=== PATIENT | female | born 1950 | race Caucasian/White ===

== ENCOUNTER 2019-06-26 09:57 | Emergency (ER) | payer BC, MEDICARE ==
--- OUTSIDE RECORDS SUMMARY | 2019-06-26 10:12 | XMS REPORT | Continuity of Care Document ---
:1950 External Reference #:[id number] Author Name Kendall Cloud MD Address [address] [place] [id number] Care Team Providers Name Role Phone [facility] - Physical Care Team Information Surveillance Sensor Operator Therapy Amilcar Rowan MD - Rheumatology Care Team Information Surveillance Sensor Operator Kendall Cloud MD - Family Medicine Care Team Information Surveillance Sensor Operator Problems Active Problems Provider Date Conduction disorder of the heart Roger Julian M.D., Onset: 05/13/[address] [facility] Aneurysm of thoracic aorta Roger Julian M.D., Onset: 05/13/[address] [facility] Cellulitis April Ramos M.D. Onset: 08/18/2014 Benign essential hypertension Nidia Bauman, Onset: 12/21/2014 JAZMIN FREEMAN Atherosclerosis of artery Nidia Bauman, Onset: 12/21/2014 JAZMIN FREEMAN Essential hypertension Roger Julian M.D., Onset: 09/29/2015 [facility] Hyperlipidemia Glenn Retana M.D. Onset: 03/13/2016 Taking medication Glenn Retana M.D. Onset: 03/13/2016 Abnormal glucose level Glenn Retana M.D. Onset: 03/13/2016 Encounter for screening for nutritional Glenn Retana M.D. Onset: 03/13/2016 disorder Irritable bowel syndrome Glenn Retana M.D. Onset: 03/13/2016 Vitamin D deficiency Glenn Retana M.D. Onset: 04/05/2016 Hypokalemia Glenn Retana M.D. Onset: 04/05/2016 Thalassemia Glenn Retaan M.D. Onset: 04/05/2016 Acquired trigger finger Glenn Retana M.D. Onset: 06/05/2016 Mass of joint of hand Glenn Retana M.D. Onset: 06/05/2016 Spasm Glenn Retana M.D. Onset: 08/02/2016 Neck pain Glenn Retana M.D. Onset: 08/02/2016 Attended breast screening clinic Glenn Retana M.D. Onset: 08/02/2016 Tietze's disease Glenn Retana M.D. Onset: 08/12/2016 Chest pain Glenn Retana M.D. Onset: 08/12/2016 Cervical disc disorder Glenn Retana M.D. Onset: 09/09/2016 Skin sensation disturbance Glenn Retana M.D. Onset: 09/09/2016 Anxiety state Glenn Retana M.D. Onset: 09/18/2016 Headache Glenn Retana M.D. Onset: 09/18/2016 Nausea Glenn Retana M.D. Onset: 09/18/2016 Preoperative cardiovascular examination Roger Julian M.D., Onset: [facility] Encounter for other preprocedural Glenn Retana M.D. Onset: 06/06/2017 examination Hypermature cataract Glenn Retana M.D. Onset: 06/06/2017 Immunization Glenn Retana M.D. Onset: 06/06/2017 Mastitis Glenn Retana M.D. Onset: 09/23/2017 Methicillin resistant staphylococcus Glenn Retana M.D. Onset: 09/23/2017 aureus carrier Screening for malignant neoplasm of Glenn Retana M.D. Onset: 05/15/2018 colon Screening mammography Glenn Retana M.D. Onset: 05/15/2018 Acquired renal cystic disease Tirso Valadez MD pc Onset: 04/12/2013 Benign neoplasm of kidney Onset: 04/12/2013 Pure hypercholesterolemia Onset: Multiple congenital cysts of kidney Onset: Type 2 diabetes mellitus Roger Julian M.D., Onset: 03/12/[address] [facility] Dyspnea Roger Julian M.D., Onset: 04/13/[address] [facility] Social History Type Date Description Comments Sex Unknown Tobacco Use Start: Unknown Never Smoked Cigarettes ETOH Use Rarely consumes wine Recreational Drug Use Denies Drug Use Tobacco Use Start: Unknown Patient has never smoked Smoking Status Reviewed: 06/02/19 Patient has never smoked Allergies, Adverse Reactions, Alerts Active Allergies Reaction Severity Comments Date Percocet Hallucinates 08/29/2010 Ciprofloxacin "body burning up" 04/11/2014 Flagyl 08/18/2014 Cipro 08/18/2014 Oxycodone Hallucinations 01/20/2018 Medications Active Medications SIG Qnty Indications Ordering Date Provider Clopidogrel Bisulfate Take 1 Tablet 90Tablet Roger Julian 05/25/2019 75mg By Mouth Every M., M.D., [facility] Tablets Day Amlodipine Besylate 1 by mouth 30tabs Roger Julian 03/12/2019 5mg every day M., M.D., [facility] Tablets Losartan Take 1 Tablet 90tabs Roger Julian 09/28/2018 Potassium/Hydrochloroth By Mouth Every M., M.D., [facility] iazide Day 100-25mg Tablets Atorvastatin Calcium 1 by mouth 90tabs Glenn Retana, 07/09/2017 40mg every day M.D. Tablets Ubiquinol 1 by mouth 30caps I10 Glenn Retana, 03/13/2016 200mg Capsules once daily M.D. Ibuprofen PM as needed Unknown 200-38mg Tablets Aspirin Adult Low Dose 1 by mouth Unknown 81mg every day Tablets DR [place] 3 1 by mouth Unknown 1000mg Capsules every day Cyclobenzaprine HCL Take 1 Tablet Unknown 10mg By Mouth Daily Tablets as Needed For Muscle Spasms For Up To 10 Vitamin D3 1 by mouth Unknown 1000Unit Tablets every day History Medications Clopidogrel Bisulfate Take 1 Tablet 90Tablet Roger Julian 05/25/2019 - By Mouth Every Jacob Mitchell, [facility] 05/25/2019 75mg Tablets Day Plavix 1 by mouth 30tabs Roger Julian 04/28/2019 - 75mg Tablets every day Jacob Mitchell, [facility] 05/25/2019 Medications Administered in Office Medication SIG Qnty Indications Ordering Provider Date Betamethasone Acetate & Rhona Daniel, [facility] 03/18/2017 Sodium Phosphate 3 MG Of Each Injection Immunizations CPT Code Status Date Vaccine Reaction Lot # 11360 Given 06/02/2019 Influenza High Dose [id number] 70662 Given 10/26/2018 Hepatitis A Vaccine Adult Dosage [id number] 73379 Given 05/15/2018 Pneumovax Injection [id number] 11701 Given 05/15/2018 Influenza Virus Vaccine, Quadrivalent, 36 [id number] Mos+, .5ML 82970 Given 06/06/2017 Influenza Virus Vaccine Quadrivalent Iiv4 [place] [id number] [address] Given 06/05/2016 Pneumococcal Conjugate Vaccine 13 Valent [id number] For Intramuscular Use 87004 Given 06/05/2016 Influenza Virus Vaccine Split Virus Use For Individual 3Yr Older [id number] Given 06/23/2015 Influenza Vaccine (Fluzone) Age 3 And Older 47019 Given 08/07/2012 Zoster Vaccine Live Injection 74619 Given 07/02/2011 Tdap injection Vital Signs Date Vital Result Comment 06/02/2019 8:41am BP Systolic 138 mmHg BP Diastolic 88 mmHg Body Temperature 97.3 F Heart Rate 62 /min Respiratory Rate 18 /min Height 60 inches 5'0" Weight 176.00 lb BMI (Body Mass Index) 34.4 kg/m2 BSA (Body Surface Area) 1.77 m2 [place] body weight in kilograms 45 kg O2 % BldC Oximetry 93 % 04/13/2019 7:18am BP Systolic Sitting Left Arm 142 mmHg BP Diastolic Sitting Left Arm 96 mmHg Heart Rate 56 /min Respiratory Rate 18 /min Height 61 inches 5'1" Weight 175.00 lb BMI (Body Mass Index) 33.1 kg/m2 BSA (Body Surface Area) 1.78 m2 [place] body weight in kilograms 48 kg O2 % BldC Oximetry 99 % Ora Results Test Date Facility Test Result H/L Range Note Urine Dipstick 01/11/2019 [facility] Ua Color yellow Yellow Ua Clarity clear Clear Ua Leuko negative Negative Ua Nitrite negative Negative Ua Urobilinogen 0.2 0.2 - 1.0 E.U./dL Ua Protein negative Negative Ua PH 5.5 Low 6.5-7.5 Ua Blood negtive Negative Ua Specific [place] 1.030 1.010-1.030 Ua Ketones negative Negative Ua Bilirubin negative Negative Ua Glucose negative Negative Procedures Date Code Description Status 04/28/2019 20956 ECHO Transthoracic Inc Performance Continuous Completed Electrocardio 03/12/2019 91041 EKG-Tracing And Report Completed 08/16/2015 [id number] Mammogram Completed 09/15/2014 [id number] Mammogram Completed 08/11/2014 [id number] Mammogram Completed 01/26/2013 [id number] Mammogram Completed 07/24/2012 [id number] Mammogram Completed 07/22/2012 [id number] Mammogram Completed 07/17/2011 [id number] Mammogram Completed 06/29/2010 [id number] Mammogram Completed 05/24/2009 [id number] Mammogram Completed 11/07/2008 [id number] Mammogram Completed 04/08/2007 [id number] Mammogram Completed 04/01/2006 [id number] Mammogram Completed 04/04/2005 [id number] Mammogram Completed Medical Devices Description No Information Available Encounters Type Date Location Provider Dx Diagnosis Office Visit 06/02/2019 Family Medicine Kendall Cloud MD Z79.899 Other director long term care 8:[address] (current) drug therapy I10 Essential (primary) hypertension E78.5 Hyperlipidemia, unspecified Z23 Encounter for immunization F43.23 Adjustment disorder with mixed anxiety and depressed mood R73.03 Prediabetes Z13.820 Encounter for screening for osteoporosis Office Visit 04/13/2019 7:20a Cardiology Office Roger Julian R06.02 Marie M.D., [facility] breath I71.2 Thoracic aortic aneurysm, without rupture I10 Essential (primary) hypertension E78.5 Hyperlipidemia, unspecified Office Visit 03/12/2019 9:20a Cardiology Office Roger Julian I71.2 Thoracic félix Mitchell M.D., [facility] aneurysm, without rupture I10 Essential (primary) hypertension E78.5 Hyperlipidemia, unspecified E11.9 Type 2 diabetes mellitus without complications Office Visit 02/23/2019 10:30a Urology Ruth, N28.1 Cyst of kidney, Jacob Soto acquired Office Visit 01/11/2019 8:45a [facility] S39.012[facility] Strain of [address] PA muscle, fascia and tendon of lower back, init I10 Essential (primary) hypertension Assessments Date Code Description Provider 06/02/2019 Z79.899 Other detention (current) drug Kendall Cloud MD therapy 06/02/2019 I10 Essential (primary) hypertension Kendall Cloud MD 06/02/2019 E78.5 Hyperlipidemia, unspecified Kendall Cloud MD 06/02/2019 Z23 Encounter for immunization Kendall Cloud MD 06/02/2019 F43.23 Adjustment disorder with mixed Kendall Cloud MD anxiety and depressed mood 06/02/2019 R73.03 Prediabetes Kendall Cloud MD 06/02/2019 Z13.820 Encounter for screening for Kendall Cloud MD osteoporosis 04/28/2019 R06.02 Shortness of breath Yazmin Irene MD 04/13/2019 R06.02 Shortness of breath Roger Julian M.D., [facility] 04/13/2019 I71.2 Thoracic aortic aneurysm, without Roger Julian M.D. , rupture [facility] 04/13/2019 I10 Essential (primary) hypertension Roger Julian M.D., [facility] 04/13/2019 E78.5 Hyperlipidemia, unspecified Roger Julian M.D., [facility] 03/12/2019 I71.2 Thoracic aortic aneurysm, without Roger Julian M.D. , rupture [facility] 03/12/2019 I10 Essential (primary) hypertension Roger Julian M.D., [facility] 03/12/2019 E78.5 Hyperlipidemia, unspecified Roger Julian M.D., 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 01/11/2019 S39.012A Strain of muscle, fascia and tendon Emmy Lundberg PA of lower back, initial e 01/11/2019 I10 Essential (primary) hypertension Emmy Lundberg PA Plan of Treatment Future Appointment(s):12/02/2019 9:10 am - Kendall Cloud MD at [facility] RD04/11/2020 8:20 am - Roger Julian M.D., [facility] at Cardiology Xyezzl4609/02/2019 9:30 am - Charles Miranda M.D. at [facility]92/02/2019 - Kendall Cloud MDZ79.899 Other detention (current) drug therapyNew Labs:CBC W/Automated Diff, Ordered: 06/02/19Comprehensive Metabolic Panel, Ordered: Glycohemoglobin A1c, Ordered: 06/02/19LDL Cholesterol Profile, Ordered: TSH Reflex FT4 And/Or FT3, Ordered: 06/02/19I10 Essential (primary) vlelmwfvnqxtU01.5 Hyperlipidemia, qbcwighgtfeL41 Encounter for lfulkcxeimlyD14.23 Adjustment disorder with mixed anxiety and depressed moodR73.03 UnhzhqvakxfL28.820 Encounter for screening for osteoporosisNew Xrays: Dexa Scan, 1 Or More, Ordered: 06/02/19 Functional Status Functional Condition Comment Date Status Independent with all ADL's Active Mental Status Description No Information Available Referrals Description No Information Available
[2019-06-26 11:03] VITALS: BP 149/83
--- NOTE | 2019-06-26 11:32 | UC ---
Skin Complaint HPI - HPI Summary HPI Summary: Pt presents with c/o tick bite that she found this morning on posterior left calf. Pt attempted to remove tick and believes she got "all of it". Pt is unsure how long tick was attached and states that she is beginning to feel body aches and flu like symptoms. Pt is requesting that she be treated for Lyme disease - History of Current Complaint Chief Complaint: UCSkin Time Seen by Provider: 06/26/19 11:24 Stated Complaint: TICK Hx Obtained From: Patient ?: No Onset/Duration: Sudden Onset, Lasting Days, Still Present Skin Exposure Onset/Duration: Days Ago Timing: Constant Onset Severity: Mild Current Severity: Mild Pain Intensity: 2 Location: Other - left posterior calf Alleviating Factor(s): Other - pt removed tick at home Associated Signs & Symptoms: Positive: Weakness, Chills, Tenderness Related History: Insect Bite/Sting - tick bite - Allergy/Home Medications Allergies/Adverse Reactions: Allergies Allergy/AdvReac Type Severity Reaction Status Date / Time acetaminophen [From Percocet] Allergy Hallucinati Verified 06/26/19 11:05 ons ciprofloxacin [From Cipro] Allergy Flushing Verified 06/26/19 11:05 metronidazole [From Flagyl] Allergy Flushing Verified 06/26/19 11:05 oxycodone [From Percocet] Allergy Hallucinati Verified 06/26/19 11:05 ons Home Medications: Home Medications Amlodipine Besylate [Norvasc] 5 mg PO DAILY 06/26/19 [History Confirmed 06/26/19 ] Atorvastatin* [Lipitor 40 MG*] 40 mg PO 1700 06/26/19 [History Confirmed ] Ibersatan 06/26/19 [History] PMH/Surg Hx/FS Hx/Imm Hx Previously Healthy: Yes Endocrine History: Dyslipidemia Cardiovascular History: Hypertension - Surgical History Surgical History: None Surgery Procedure, Year, and Place: heart cath-05/2019 - Family History Known Family History: Positive: Cardiac Disease - Social History Occupation: Retired Lives: With Family Alcohol Use: Rare Substance Use Type: None Smoking Status (MU): Never Smoked Tobacco Have You Smoked in the Last Year: No Review of Systems All Other Systems Reviewed And Are Negative: Yes Constitutional: Positive: Chills, Fatigue, Other - malaise Skin: Positive: Negative Eyes: Positive: Negative ENT: Positive: Negative Respiratory: Positive: Negative Cardiovascular: Positive: Negative Gastrointestinal: Positive: Negative Genitourinary: Positive: Negative Motor: Positive: Negative Neurovascular: Positive: Negative Musculoskeletal: Positive: Myalgia Neurological: Positive: Headache Psychological: Positive: Negative Is Patient Immunocompromised?: No Physical Exam Triage Information Reviewed: Yes Appearance: Well-Appearing Vital Signs: Initial Vital Signs Temp 98.5 F 06/26/19 10:55 Pulse 56 06/26/19 10:55 Resp 16 06/26/19 10:55 BP 149/83 06/26/19 10:55 Pulse Ox 100 06/26/19 10:55 Vital Signs Reviewed: Yes Eye Exam: Normal ENT Exam: Normal Dental Exam: Normal Respiratory: Positive: No respiratory distress Musculoskeletal Exam: Normal Neurological Exam: Normal Psychological Exam: Normal Skin Exam: Other - small round erythematous area left posterior calf Course/Dx - Course Course Of Treatment: I discussed with the pt testing for lyme and pt requested being treated as presumed. - Differential Diagnoses - Skin Complaint Differential Diagnoses: Cellulitis, Tick Born Illness - Diagnoses Provider Diagnosis: Tick bite of calf Discharge ED - Sign-Out/Discharge Documenting (check all that apply): Patient Departure All imaging exams completed and their final reports reviewed: No Studies - Discharge Plan Condition: Stable Disposition: HOME Prescriptions: DOXYcycline CAP(*) [DOXYcycline 100MG CAP(*)] 100 mg PO Q12H #20 cap Patient Education Materials: Tick Bite (ED) Referrals: Kendall Cloud MD [Primary Care Provider] - If Needed - Billing Disposition and Condition Condition: STABLE Disposition: Home
== END 2019-06-26 11:41 | disposition home or self-care (01) ==
LOC: UCCORT 09:57
DX: S80.862A Insect bite (nonvenomous), left lower leg, initial encounter (principal); Z88.8 Allergy status to other drugs, medicaments and biological substances; Z88.5 Allergy status to narcotic agent; I10 Essential (primary) hypertension; Z79.899 Other long term (current) drug therapy; W57.XXXA Bitten or stung by nonvenomous insect and other nonvenomous arthropods, initial encounter; Y92.9 Unspecified place or not applicable
CPT/HCPCS: 99202; G0463